=== PATIENT | male | born 1960 | race Caucasian/White ===

== ENCOUNTER 2017-09-16 06:29 | Day surgery (SDC) | payer OTHER ==
[~2017-09-16] VITALS: Ht 167.6 cm; Wt 65.5 kg
[~2017-09-16 06:29] MED LIST: SODIUM CHLORIDE 0.9% 1,000 ML IV ONE
[2017-09-16] MEDS ORDERED: BENZOCAINE 20% 50 MCG/SPRAY 57 GM TP ONE (06:30)
[2017-09-16] MEDS ORDERED: ALBUTEROL SULFATE 2.5 MG/0.5 ML NEB SOLUTION NEB ONE (06:30)
[2017-09-16] MEDS ORDERED: LIDOCAINE HCL 2% 30 ML JELLY TP ONE (06:30)
[2017-09-16] MEDS ORDERED: LIDOCAINE HCL 4% 50 ML SOLUTION TP ONE (06:30)
[2017-09-16] MEDS ORDERED: SODIUM CHLORIDE 0.9% 1,000 ML IV ONE (07:00)
[2017-09-16 07:44] LABS: GLUCOMETER DEV NAME(LOC) SDS 5; GLUCOSE,POINT OF CARE 116 MG/DL (70-110)
[2017-09-16] MEDS ORDERED: FentaNYL CITRATE-PF 100 MCG/2 ML VIAL ONE (08:09)
[2017-09-16] MEDS ORDERED: MIDAZOLAM HCL 2 MG/2 ML VIAL ONE (08:09)
[2017-09-16] MEDS ORDERED: MethylPREDNISolone SOD SUCC 125 MG/2 ML VIAL IVP ONE (09:15)
[2017-09-16] MEDS ORDERED: MethylPREDNISolone SOD SUCC 125 MG/2 ML VIAL ONE (09:27)
[2017-09-16] MEDS ORDERED: OXYGEN THERAPY IH SCH (20:00)
== END 2017-09-16 10:45 | disposition home or self-care (01) ==
LOC: SURGERY 06:29
PROVIDERS: ATTEND Internal Medicine Critical Care Medicine
DX: J38.4 Edema of larynx (principal); B37.0 Candidal stomatitis; J84.111 Idiopathic interstitial pneumonia, not otherwise specified; J45.998 Other asthma; E11.9 Type 2 diabetes mellitus without complications; E78.00 Pure hypercholesterolemia, unspecified; Z79.52 Long term (current) use of systemic steroids; Z87.891 Personal history of nicotine dependence; Z79.84 Long term (current) use of oral hypoglycemic drugs; Z79.899 Other long term (current) drug therapy
CPT/HCPCS: 31623; 31624; 71045; 82962; 87015; 87070; 87205; 87206; 87220; 88108; 88312; J2250; J2930; J3010; J7030